=== PATIENT | male | born 1950 | race Caucasian/White ===

== ENCOUNTER 2025-03-02 10:28 | Emergency (ER) | payer MEDICARE, OTHER, SELFPAY ==
--- NOTE | ~2025-03-02 | XR_ITS ---
XR abdomen gastric tube insert Ordering provider: Hima Tenorio MD History: . g-tube insertion/ 30 CC OMNIPAQUE 350 INJECTED . Comparison: None. FINDINGS/impression: BOWEL: NG tube is seen in the stomach with no definite leak. Contrast seen in the stomach and duodenu m. Nonobstructive bowel gas pattern. Reviewed, dictated and finalized at location A.
[2025-03-02 10:38] VITALS: BP 136/79; PULSE 92; RESP 20; TEMP 36.9; O2SAT 100
--- NOTE | 2025-03-02 11:51 | ED_ITS ---
HPI - General Adult General Chief complaint: Unspecified Stated complaint: G-Tube Displaced Time Seen by Provider: 03/02/25 11:42 History of Present Illness HPI narrative: Patient is a 74-year-old male who presents ER with a dislodged feeding tube. cut off the end and then put the tube back in the hole so that it would not close off. Patient is on hospice. No pain or other issues at this time. Related Data Allergies Allergy/AdvReac Type Severity Reaction Status Date / Time No Known Allergies Allergy Verified 03/02/25 10:43 Review of Systems Constitutional: Constitutional: Reports no additional constitutional complaints Cardiovascular: Cardiovascular: Reports no additional cardiovascular complaints Respiratory: Respiratory: Reports no additional respiratory complaints Gastrointestinal: Gastrointestinal: Reports no additional gastrointestinal complaints PMFSH Past Medical History Medical History (Updated 03/02/25 @ 18:24 by Hima Tenorio MD) G tube feedings Exam Narrative: GENERAL: Chronically ill-appearing, well-nourished, and in no acute distress. HEAD: Normocephalic, atraumatic. ENT: Mucous membranes moist. CHEST: Clear to auscultation. No respiratory distress. HEART: Regular rate and rhythm. Normal peripheral pulses. ABDOMEN: Soft, nontender, normal appearing G-tube site left upper abdomen. EXTREMITIES: Normal range of motion. No edema. NEURO: Alert and oriented x3. PSYCH: Normal mood and affect. Course Course Emergency Course: Patient resting comfortably. Tube exchanged. Discharge. Vital Signs Vital signs: Vital Signs Temperature 98.5 F 03/02/25 10:38 Pulse Rate 92 03/02/25 10:38 Respiratory Rate 03/02/25 10:38 Blood Pressure 136/79 03/02/25 10:38 Pulse Oximetry 100 03/02/25 10:38 Oxygen Delivery Room Air 03/02/25 10:38 Temperature 98.5 F 03/02/25 10:38 Pulse Rate 95 03/02/25 13:45 Respiratory Rate 03/02/25 13:45 Blood Pressure 153/75 H 03/02/25 13:45 Pulse Oximetry 100 03/02/25 13:45 Oxygen Delivery Room Air 03/02/25 10:38 Procedures Feeding Tube Replacement Feeding Tube #1: Feeding Tube Placement Date: 03/02/25 Feeding Tube Placement Time: 11:52 Type of Tube: gastrostomy Insertion Site Prior to Procedure: clean Danish Tube Size (F): 16 Balloon size (mL): 5 Verification of Placement: gastrografin injection Tube Secured by: attachment device Patient Tolerated Procedure: well Medical Decision Making Vital Signs Vital Signs: Vital Signs Temperature 98.5 F 03/02/25 10:38 Pulse Rate 92 03/02/25 10:38 Respiratory Rate 20 03/02/25 10:38 Blood Pressure 136/79 03/02/25 10:38 Pulse Oximetry 100 03/02/25 10:38 Oxygen Delivery Room Air 03/02/25 10:38 Temperature 98.5 F 03/02/25 10:38 Pulse Rate 95 03/02/25 13:45 Respiratory Rate 20 03/02/25 13:45 Blood Pressure 153/75 H 03/02/25 13:45 Pulse Oximetry 100 03/02/25 13:45 Oxygen Delivery Room Air 03/02/25 10:38 Discharge Plan Discharge Clinical Impression: Gastrostomy tube dysfunction Patient Disposition: Home Condition: Stable Additional Instructions: Return to the ER if you have additional complications with your feeding tube. Patient Language: Nicaraguan Follow-up/Referrals: UNKNOWN,DOCTOR [Primary Care Provider] - 1 Week
[2025-03-02 13:43] VITALS: RESP 20; O2SAT 100
[2025-03-02 13:45] VITALS: BP 153/75; PULSE 95; RESP 20; O2SAT 100
--- OUTSIDE RECORDS SUMMARY | 2025-03-02 13:52 | XMS_ITS | Clinical Summary ---
Author Organization [facility] Address [address] [place] [address] Phone Care Team Providers Care County Director Welfare Name Role Phone Ru Bocanegra ANP Primary Care Provider [phone] Allergies No known active allergies Medications cloZAPine (CLOZARIL) 100 mg tablet Take 100 mg by mouth daily. Active divalproex (DEPAKOTE ER) 250 mg Extended Release 24 hour tablet Take 1,000 mg by mouth daily. Active carvediloL (COREG) 12.5 mg tablet Take 25 mg by mouth 2 times daily with meals. Hold for SBP < 100 OR heart rate < 60 bpm Active clonazePAM (KlonoPIN) 1 mg tablet Take 1.5 mg by mouth daily at bedtime. Active amLODIPine-atorv astatin 10-80 mg tablet Take 1 Tablet by mouth daily with supper. Active cholecalciferol, vitamin D3, 1,000 unit Take 1,000 Units by mouth daily. Active omega-3 acid ethyl esters (LOVAZA) 1 gram Capsule Take 1 Gram by mouth 2 times daily with meals. Active polyethylene glycol 3350 (MIRALAX) 17 gram/dose Powder Take 17 Grams by mouth daily. Dissolve in 8 ounces of fluid and drink entire liquid Active omeprazole (PriLOSEC) 20 mg Capsule, Delayed Release(E.C.) Take 20 mg by mouth 2 times daily before meals. Active QUEtiapine (SEROquel) 100 mg tablet Take 100 mg by mouth daily at bedtime. Take one half tab daily at bedtime Active sildenafiL (VIAGRA) 100 mg tablet Take 100 mg by mouth 1 time daily as needed for Erectile Dysfunction. Active sodium bicarbonate 650 mg tablet Take 650 mg by mouth 3 times daily. Active Active Problems Problem Noted Date Diagnosed Date Community acquired pneumonia 12/02/2020 Physical deconditioning 12/02/2020 Renal insufficiency 12/02/2020 Elevated troponin 12/02/2020 Hyperkalemia 12/02/2020 Bipolar disorder, unspecified 12/02/2020 Anemia, unspecified 12/02/2020 Leukocytosis (leucocytosis) 12/02/2020 Essential hypertension 12/02/2020 Sepsis due to pneumonia 12/02/2020 S/P CABG (coronary artery bypass graft) 12/02/19 Basal cell carcinoma (BCC) of skin of scalp and neck 06/14/2018 Elevated brain natriuretic peptide (BNP) level Blood typing encounter Family History Medical History Relation Name Comments Stroke Mother Cancer Sister Relation Name Status Comments Mother Sister Social History Tobacco Use Types Packs/Day Years Used Date Smoking Tobacco: Never Smokeless Tobacco: Never Alcohol Use Standard Drinks/Week Comments Never 0 (1 standard drink = 0.6 oz pur e alcohol) Sex and Gender Information Value Date Recorded Sex Assigned at Not on file Legal Sex Male 11:54 PM CDT Gender Identity Not on file Sexual Orientation Not on file Last Filed Vital Signs Vital Sign Reading Time Taken Comments Blood Pressure 128/82 12/09/2020 12:[address] [employer] Pulse 74 12/09/2020 12:[address] [facility] Temperature 36.8 C (98.2 F) 12/09/2020 12:[address] [facility] Respiratory Rate 20 12/09/2020 12:[address] [facility] Oxygen Saturation 97% 12/09/2020 12: [address] [facility] Inhaled Oxygen Concentration - - Weight 78.4 kg (172 lb 14.4 oz) 12/08/2020 5:[address] [facility] Height 177.8 cm (5' 10 ) 12/02/2020 4:[address] [facility] Body Mass Index 24.81 12/02/2020 4:[address] [facility] Plan of Treatment Health Maintenance Due Date Last Done Comments COLORECTAL SCREENING 1994 Colorectal Cancer Screening 1994 FIT-DNA Q 3 years 1994 FIT/FOBT Q 1 year 1994 Flex Sig/CT Colonography Q 5 years 1994 ZOSTER VACCINE (1 of 2) 1999 INFLUENZA VACCINE (#1) 2024 08/12/2019, 2015 RSV VACCINE (60+ or ) (1 - 1-dose 75+ series) 2024 DTAP/TDAP/TD VACCINES (2 - Td or Tdap) 07/17/2029 PNEUMOCOCCAL VACCINE 50+ YEARS Completed 10/15/2017 , 10/19/2015 Insurance MEDICARE PART A AND B RX [place] [employer] (INTERNAL) [facility] Advance Directives For more information, please contact: [phone] * Full Code (Latest Code Status on File) Date Activated Date Inactivated Comments 12/02/2020 2:29 PM 12/09/2020 6:32 PM Care Teams County Director Welfare Relationship Specialty Start Date End Date Ru Bocanegra ANP [address] [place] [address] PCP - General NURSE PRACTITIONER 12/02/20
--- OUTSIDE RECORDS SUMMARY | 2025-03-02 13:52 | XMS_ITS | Clinical Summary ---
Author Organization [facility] Address [address] [place] [address] Care Team Providers Care Tile Layer Name Role Phone Ru Bocanegra LUCIO-SAS PROGRAMMER ANALYST Primary Care Provid er Source Comments [facility],non-owned Affiliates and Associated Physician Practices is amultiple site organization consisting of ambulatory clinics and hospital sitesin [place], [place], [place] and [place]. This disclosure is being madepursuant to the Care Everywhere program and may not contain all information available regarding this patient. Last updated 18.[facility] Allergies No known active allergies Medications * Be aware that medications may not be up to date on this document. Alwaysverify current medications with the patient. acetaminophen (TYLENOL) 325 MG tablet Take 1 (one) tablet by mouth every 4 hours as needed for Fever or Pain Maximum allowable Acetaminophen amount = 4 Grams (4000 mg) / 24 hours. Active aspirin (ASPIRIN) 81 MG tablet Take 1 (one) tablet by mouth once daily Active atorvastatin (LIPITOR) 80 MG tablet Take 1 (one) tablet by mouth at bedtime Active carvedilol (COREG) 25 MG tabletIndicatio ns:1/2 tablet Take 1 (one) tablet by mouth 2 times daily with morning and evening meal Reasons: 1/2 tablet Active cloZAPine (CLOZARIL) 100 MG tabletIndicatio ns:1 tablet and 1/2 tablet Take 1 (one) tablet by mouth at bedtime Reasons: 1 tablet and 1/2 tablet Active [place]-3 Fatty Acids (FISH OIL) 1000 MG capsule Take by mouth 2 times daily Active losartan (COZAAR) 100 MG tablet Take 1 (one) tablet by mouth once daily Active omeprazole (PRILOSEC) 20 MG capsule Take 1 (one) capsule by mouth 2 times daily, before breakfast and supper Active polyethylene glycol 3350 (MIRALAX) powder Take 17 (seventeen) g by mouth once daily as needed for Constipation Active SODIUM BICARBONATE PO Take 1,300 mg by mouth 2 times daily Active sildenafil (VIAGRA) 100 MG tablet Take 1 (one) tablet by mouth once as needed Active amLODIPine (NORVASC) 5 MG tablet Take 1 (one) tablet by mouth once daily Active Nutritional Supplements (Nepro) LIQD Take 1 container by mouth 3 times daily 4 Active pantoprazole EC (Protonix) 40 MG tablet Take 1 (one) tablet by mouth once daily 4 Active ferrous sulfate 325 (65 FE) MG tablet Take 1 (one) tablet by mouth every 2 days 4 Active valproic acid (Depakene) 250 MG/5ML solution Take 5 mL by mouth every 8 hours 4 Active gabapentin (Neurontin) 100 MG capsule Take 1 (one) capsule by mouth at bedtime 4 Active apixaban (Eliquis) 2.5 MG tablet Take 1 (one) tablet by mouth 2 times daily 4 Active cinacalcet (Sensipar) 30 MG tablet Take 2 (two) tablets by mouth daily with breakfast Active furosemide (Lasix) 20 MG tablet Take 1 (one) tablet by mouth once daily Active lactulose (Chronulac) 10 GM/15ML solution Take 30 mL by mouth once daily as needed for Constipation Active senna (Senokot) 8.6 MG tablet Take 2 (two) tablets by mouth once daily as needed for Constipation Active baclofen (Lioresal) 5 MG TABS Take 0.5 (one-half) tablet by mouth 2 times daily as needed Active amoxicillin (Amoxil) 500 MG capsule TAKE ONE CAPSULE BY MOUTH EVERY 12 HOURS FOR 6 DAYS 12 capsule 4 025 Active patiromer (Veltassa) 16.8 g packet MIX AND TAKE ONE PACKET BY MOUTH ONCE DAILY PER PACKAGE DIRECTIONS 30 Each 4 025 Active doxycycline hyclate (Vibramycin) 100 MG capsule TAKE ONE CAPSULE BY MOUTH EVERY 12 HOURS FOR 6 DAYS 12 capsule 4 025 Active Active Problems Problem Noted Date Diagnosed Date Severe protein-calorie malnu trition ([place]: less than 60% of standard weight) 07/23/2024 Bipolar affective disorder in remission 07/22/20 24 Hyperkalemia 07/22/2024 Hyperphosphatemia 07/22/2024 Bandemia 07/22/2024 Osteomyelitis, unspecified site, unspecified typ e 07/15/2024 Multiple open wounds of lowe r leg, unspecified laterality, initial encounter 07/15/2024 Pain in both lower extremities 07/15/2024 CKD (chronic kidney disease) stage 4, GFR 15-29 ml/min 07/15/2024 Coronary artery disease invo lving coronary bypass graft of mcgrath heart without angina pectoris 07/15/2024 Primary hypertension 07/15/2024 Family History Medical History Relation Name Comments CVA Mother Cancer - Skin, Non Melanoma Sister Allergy (Severe) Neg Hx Cancer Neg Hx Cancer - Breast Neg Hx Cancer - Skin, Melanoma Neg Hx Eczema Neg Hx Hemophilia Neg Hx Psoriasis Neg Hx Rashes/Skin Problems Neg Hx Relation Name Status Comments Mother Sister Social History Tobacco Use Types Packs/Day Years Used Date Smoking Tobacco: Never Smokeless Tobacco: Never Alcohol Use Standard Drinks/Week Comments No 0 (1 standard drink = 0.6 oz pur e alcohol) AUDIT-C Answer Date Recorded Q1: How often do you have a drink containing alcohol? Never 07/16/2024 Q2: How many drinks containi ng alcohol do you have on a typical day when you are drinking? Patient does not drink Q3: How often do you have si x or more drinks on one occasion? Never 07/16/2024 Overall Financial Resource Strain (CARDIA) Answe r Date Recorded How hard is it for you to pa y for the very basics like food, housing, medical care, and heating? Not very hard 07/16/2024 [facility] - Occupational Stress Questionnaire Answer Date Recorded Do you feel stress - tense, restless, nervous, or anxious, or unable to sleep at night because your mind is troubled all the time - these days? Not at all 07/16/2024 Hunger Vital Sign Answer Date Recorded Within the past 12 months, y ou worried that your food would run out before you got the money to buy more. Sometimes true Within the past 12 months, t he food you bought just didn't last and you didn't have money to get more. Never true 09/2024 PRAPARE - Transportation Answer Date Re corded In the past 12 months, has l ack of transportation kept you from medical appointments or from getting medications? No 07/06 In the past 12 months, has l ack of transportation kept you from meetings, work, or from getting things needed for daily living? No 07/16/2024 Housing Stability Vital Sign Answer Edison e Recorded In the last 12 months, was t here a time when you were not able to pay the mortgage or rent on time? No 07/16/2024 In the last 12 months, how many places have you lived? 1 07/16/2024 In the last 12 months, was t here a time when you did not have a steady place to sleep or slept in a snf (including now)? 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 Gender Identity Not on file Sexual Orientation Not on file Last Filed Vital Signs Vital Sign Reading Time Taken Comments Blood Pressure 157/95 07/24/2024 12:18 PM CDT Pulse 100 07/24/2024 12:18 PM CDT Temperature 36.4 C (97.5 F) 07/24/2024 12:18 PM CDT Respiratory Rate 15 07/24/2024 12:18 PM CDT Oxygen Saturation 96% 07/24/2024 12:18 PM CDT Inhaled Oxygen Concentration - - Weight 72.6 kg (160 lb) 07/16/2024 9:42 PM CDT Height 177.8 cm (5' 10 ) 07/16/2024 9:42 PM CDT Body Mass Index 22.96 07/16/2024 9:42 PM CDT Plan of Treatment Health Maintenance Due Date Last Done Comments COLOGUARD (AGES 45-75) - COLON CA SCREENING 1949 COLON MONITORING 1949 COLONOSCOPY - COLON CA SCREENING 1949 CT COLONOGRAPHY - COLON CA SCREENING 1949 Colorectal Cancer Screening 1949 FIT - COLON CA SCREENING 1949 FLEX SIG - COLON CA SCREENING 1949 MEDICARE AWV 12 MONTHS 1949 HEPATITIS C SCREENING 07/27/1967 DTAP/TDAP/TD VACCINES (1 - Tdap) 1968 PNEUMOCOCCAL VACCINE 50+ (1 of 1 - PCV) 1999 ZOSTER VACCINE (1 of 2) 1999 COVID-19 VACCINE (6 - season) 2024 08/24/2023, 08/21/2022, 09/05/2021, Additional history exists Respiratory Syncytial Virus (RSV) Vaccine Pt: or over 60 yrs (1 - 1-dose 75+ series) 2024 SCREENING FOR DIABETES 07/24/2027 , 07/23/2024, 07/22/2024, Additional history exists INFLUENZA VACCINE Completed 08/07/2024, , 09/05/2021, Additional history exists HEPATITIS B VACCINE Aged Out No longe r eligible based on patient's age to complete this topic HIB VACCINE Aged Out No longer eligi ble based on patient's age to complete this topic HPV VACCINE Aged Out No longer eligi ble based on patient's age to complete this topic MENINGOCOCCAL (Group B) VACCINE SHARED DECISION-MAKING Aged Out No longer eligible based on patient's age to complete this topic MENINGOCOCCAL GROUPS A/C/Y/W VACCINE Aged Out No longer eligible based on patient's age to complete this topic Procedures Procedure Name Priority Date/Time Associated Diagnosis Comments RENAL FUNCTION PANEL STAT 07/24/2024 10:58 AM CDT from Last 3 Months or Most Recently Relevant to Health Maintenance Results * (ABNORMAL) RENAL FUNCTION PANEL (07/24/2024 10:58 AM CDT) BUN 56(H) 7 - 26 mg/dL 07/24/2024 11:41 AM CDT [facility] Creatinine 3.32(H) 0.71 - 1.16 mg/dL 07/24/2024 11:41 AM [facility] Sodium 140 136 - 145 mmol/L 07/24/2024 11:41 AM [facility] Potassium 4.9(H) 3.5 - 4.5 mmol/L 07/24/2024 11:41 AM [facility] Chloride 112(H) 98 - 107 mmol/L 07/24/2024 11:41 AM [facility] CO2 20(L) 22 - 29 mmol/L 07/24/2024 11:41 AM [facility] Glucose 119(H) 70 - 115 mg/dL 07/24/2024 11:41 AM [facility] Albumin 1.8(L) 3.4 - 5.0 g/dL 07/24/2024 11:41 AM [facility] Calcium 10.3(H) 8.4 - 10.2 mg/dL 07/24/2024 11:41 AM [facility] Phosphorus 4.4 2.8 - 5.1 mg/dL 07/24/2024 11:41 AM [facility] Anion Gap 8 6 - 16 07/24/2024 11:41 AM [facility] BUN/Creatinine Ratio 17 7 - 23 07/24/2024 11:41 AM [facility] Osmolality Calculated 307(H) 275 - 295 mOsm/kg 07/24/2024 11:41 AM [facility] eGFR by CKD-EPI 19(L) >=90 mL/min/1.7 3 m2 07/24/2024 11:41 AM [facility] Blood BLOOD SPECIMEN / Unknown Lab Venipuncture / Unknown 07/24/2024 10:58 AM T 07/24/2024 11:10 AM [facility] us Beth Junior MD LAB - CHEMISTRY ORDERABLES nal Result [facility] [address] [place] [address], [place] [phone] from Last 3 Months or Most Recently Relevant to Health Maintenance Insurance MEDICARE [facility] MEDICARE Advance Directives * LIMITED RESUSCITATION-PRIOR AND AFTER ARREST (Latest Code Status on File) Date Activated Date Inactivated Comments 07/15/2024 10:37 PM 07/24/2024 4:53 PM Question Answer Comments Limited Resuscitation: No Chest Compress ionNo Intubation, No Invasive VentilationNo Cardioversion, No Defibrilation, No External or Internal Pacemaker * Full Code Date Activated Date Inactivated Comments 07/15/2024 9:36 PM 07/15/2024 10:37 PM Care Teams Tile Layer Relationship Specialty Start Date End Date Ru Bocanegra, FORM TAMPER-SAS PROGRAMMER ANALYST [address] [facility] [address] [address] [place] [address] PCP - General 08/08/13
--- OUTSIDE RECORDS SUMMARY | 2025-03-02 13:52 | XMS_ITS ---
Author Organization [facility] Address [address] [place] [address] Phone Care Team Providers Care Director Of Labor And Delivery Name Role Phone Daljit Ru Soriano ANP Primary Care Provider [phone] Active Problems Problem Noted Date Diagnosed Date [...] natriuretic peptide (BNP) level Blood typing encounter Current Treatment and Therapy Plans No current plan information found. Past Treatment and Therapy Plans No past plan information found. Lifetime Dose Tracking * Chemical Lifetime Dose Automatic Entry Manual Entr y Effective Dose 2.2 mSv 2.2 mSv 0 mSv Total DLP 948 DLP 948 DLP 0 DLP CTDIvol Max 51.1 mGy 51.1 mGy 0 mGy CTDIvol Min 51.1 mGy 51.1 mGy 0 mGy
--- OUTSIDE RECORDS SUMMARY | 2025-03-02 13:52 | XMS_ITS | Continuity of Care Document ---
Author Organization [facility] Address [address] [place] [address] Phone Care Team Providers Care Computer Information Systems Instructor Name Role Phone Unavailable Unavailable Unavailable Medications Medication Instructions Dosage Effective Dates (start - stop) Status Comments amoxicillin 500 mg tablet take 1 tablet by oral route every 8 hours 500 MG - Active penicillin V potassium 500 mg tablet take 1 tablet by oral route every 8 hours 500 MG - Active Vicodin 5 mg-300 mg tablet take 1 tablet by oral route every 4 - 6 hours as needed for pain - Active *NOTE: Generic 5-325 is also acceptable. Procedures Procedure Date Limit oral eval problem focused 015 Periapical Radiographic, first Image Oct Extraction erupted tooth or exposed root Extraction erupted tooth or exposed root Office Visit (No Chrg) Extraction erupted tooth or exposed root Periapical Radiographic, first Image Aug Periodic oral evaluation Dental prophylaxis adult Surgical extr erupted tooth Dental prophylaxis adult Topical Flouride Varnish Comprehensve oral evaluation Dental bitewings two films Dental prophylaxis adult Periapical first film Limit oral eval problem focused 012 Extraction erupted tooth or exposed root Advance Directives Directive Yes / No Effective Date File Name No Information Encounters Encounter Description Practice Location Reason(s) For Visit Diagnoses Date Provider Providers Copied on Encounter [facility] , [address], [place], [place], [id number], [place] tel:[phone] [facility] [place] Other periodontal diseases 5 No Information [facility] , [address], [place], [place], [address], [place] tel:[phone] [facility] Dental examination [address] Jack. [address], [place], [place], [id number], [place]. tel:[phone] Referring Provider: Guero Bullock, [address], [place], [address] . tel:[phone] [facility] , [address], [place], [place], [address], tel:[phone] [facility] Dental examination 4 Ara Jack. [address], [place], [place], [address], . tel:[phone] Referring Provider: Guero Bullock, [address], [place], [address] . tel:[phone] [facility] , [address], [place], [place], [address], [place] tel:[phone] [facility] Dental examination 4 No Information [facility] , [address], [place], [place], [address], [place] tel:[phone] [facility] [place] Dental examination 3 No Information [facility] , [address], [place], [place], [address], [place] tel:[phone] [facility] [place] Dental examination 3 Italia Vance. [address], [place], [place], [address], [place]. tel:[phone] [facility] , [address], [place], [place], [address], [place] tel:[phone] [facility] [place] Dental examination 3 No Information [facility] , [address], [place], [place], [address], [place] tel:[phone] [facility] [place] Dental examination Oct-1 7-201 2 No Information [facility] , [address], [place], [place], [address], [place] tel:[phone] [facility] [place] Dental examination Jul-0 2 No Information Family History Family Member Type Diagnosis Age At Onset No Information Payers Payer name Insurance type Covered republican ID Authoriza tion(s) No Information Social History Type Description Quantity Date Captured Comments Sex Male Smoking Status No Information Chief Complaint And Reason For Visit No Information Reason For Referral Reason For Referral No Information History Of Present Illness Encounter Date Complaint History Of Prese nt Illness No Information Functional Status Date Functional Assessmen t No Information Instructions Date Instruction Additional Infor mation No Information Assessments Type Assessment Date No Information Patient Care Teams Name Effective Dates (start - stop) Status Members No Information
--- OUTSIDE RECORDS SUMMARY | 2025-03-02 13:52 | XMS_ITS | Encounter Summary ---
Author Organization [facility] Address [address] [place] [address] Care Team Providers Care Travel Ticketing Reviewer Name Role Phone Ru Bocanegra ANP Primary Care Provider [phone] Reason for Visit * Reason Onset Date Comments Renal Insufficiency 12/02/2020 KAREN DUARN Encounter Details Date Type Department Care Team (Late st Contact Info) Description 12/02/2020 Telephone [facility] [address] [place] [address] [place] [id number] [address] Renal Insufficiency (KAREN DURAN) Social History Tobacco Use Types Packs/Day Years Used Date Smoking Tobacco: Never Smokeless Tobacco: Never Alcohol Use Standard Drinks/Week Comments Never 0 (1 standard drink = 0.6 oz pur e alcohol) Sex and Gender Information Value Date Recorded Sex Assigned at Not on file Legal Sex Male 11:54 PM CDT Gender Identity Not on file Sexual Orientation Not on file COVID-19 Exposure Response Date Recorded In the last month, have you been in contact with someone who was confirmed or suspected to have Coronavirus / COVID-19? Unable to assess 12/02/2020 4:11 PM [employer] documented as of this encounter Functional Status documented as of this encounter Plan of Treatment Not on file documented as of this encounter Visit Diagnoses Not on filedocumented in this encounter Care Teams Travel Ticketing Reviewer Relationship Specialty Start Date End Date Ru Bocanegra ANP [address] [place] [address] PCP - General NURSE PRACTITIONER 12/02/20 documented as of this encounter
--- OUTSIDE RECORDS SUMMARY | 2025-03-02 13:52 | XMS_ITS | CONTINUITY OF CARE DOCUMENT ---
Author Name nelly villegas Address Unknown Organization [facility] Address [address] [place] [address] Phone [phone] Care Team Providers Care Crowd Controller Name Role Phone Margareth Griggs MD Unavailable [phone] Margareth Griggs MD Unavailable INSURANCE PROVIDERS Payer name Policy type / Coverage type [place] [employer] party [place] [employer] Medicare [id number] [facility] OPT Commercial insurance company [phone]
== END 2025-03-02 14:07 | disposition hospice, home (50) ==
PROVIDERS: Emergency Provider Emergency Medicine
DX: Z43.1 Encounter for attention to gastrostomy (principal)
CPT/HCPCS: 43762; 99283